=== PATIENT | male | born 1985 | race Caucasian/White ===

== ENCOUNTER 2023-03-12 17:31 | Emergency (ER) | payer OTHER, BC ==
[~2023-03-12] VITALS: Ht 182.9 cm; Wt 89.4 kg
[2023-03-12 18:13] LABS: Basophils # (auto) 0.1 10 ^3/uL (0-0.2); Eosinophils # (auto) 0 10 ^3/uL (0-0.8); Hemoglobin 17.9 g/dL (13.5-17.5); Mean Corpuscular Hemoglobin 30.3 pg (28.0-32.0); Mean Corpuscular Hgb Conc. 34.1 g/dL (32.0-36.0); Mean Corpuscular Volume 88.9 fL (80.0-100.0); Monocytes # (auto) 0.7 10 ^3/uL (0-1.3); Nucleated Red Blood Cells % 0.3 %
[2023-03-12 18:15] LABS: Basophils % (auto) 0.7 % (0.0-2.0); Eosinophils % (auto) 0.6 % (0.0-7.0); Hematocrit 52.5 % (41.0-53.0); Lymphocytes # (auto) 1.8 10 ^3/uL (0.4-5.4); Lymphocytes % (auto) 21.1 % (10.0-50.0); Monocytes % (auto) 8.5 % (0.0-12.0); Neutrophils % (auto) 69.1 % (37.0-80.0); Red Cell Distribution Width 13.3 % (11.8-14.3); White Blood Cell 8.7 10^3/uL (4.4-10.8)
[2023-03-12 18:40] LABS: Albumin 4.7 g/dL (3.4-5.0); Calcium 9.9 mg/dL (8.5-10.1); Potassium 3.9 mmol/L (3.5-5.1)
[2023-03-12 18:44] LABS: BUN/Creatinine Ratio 11.9 (10.0-20.0); Bilirubin, Total 1.1 mg/dL (0.2-1.0); Total Protein 8.7 g/dL (6.4-8.2)
[2023-03-12 21:11] LABS: Urine Bacteria NONE SEEN /hpf (None Seen); Urine Blood 1+ /uL (Negative); Urine Mucus FEW (None Seen); Urine Specific Gravity 1.036 (1.001-1.035); Urine WBC <1 /hpf (0 - 3)
[2023-03-12] MEDS ORDERED: ONDANSETRON HCL 4 MG/2 ML VIAL IV ONE (21:45)
[2023-03-12] MEDS ORDERED: SODIUM CHLORIDE 0.9% 1,000 ML IV ONE (21:45)
[2023-03-12] MEDS ORDERED: CEPH500C PO ×2 (21:58)
[2023-03-12] MEDS ORDERED: TAMS-35 PO ×2 (21:58)
[2023-03-12] MEDS ORDERED: ZOFR4T PO ×2 (21:58)
[2023-03-12] MEDS ORDERED: FAMO20TA10 PO ×2 (21:58)
[2023-03-12] MEDS ORDERED: SODIUM CHLORIDE 0.9% 2,000 ML IV ONE (22:00)
[2023-03-12] MEDS ORDERED: FAMOTIDINE (10MG/ML) 2ML VL IV ONE (22:00)
[2023-03-12] MEDS ORDERED: TAMSULOSIN HYDROCHLORIDE 0.4 MG CAP PO ONE (22:00)
[2023-03-12 22:51] LABS: Alcohol, Urine < 3.0 mg/dL (0-10); Amphetamine Screen, Urine NEGATIVE (NEGATIVE); Barbiturate Scree,Urine NEGATIVE (NEGATIVE); Benzodiazephine Screen, Urine NEGATIVE (NEGATIVE); Cannabinoid Screen, Urine POSITIVE (NEGATIVE); Cocaine Screen, Urine NEGATIVE (NEGATIVE)
[2023-03-12 22:59] LABS: Opiate Scree,Urine NEGATIVE (NEGATIVE); Phencyclidine Screen, Urine NEGATIVE (NEGATIVE)
[2023-03-13] MEDS ORDERED: ZOFR4T PO (00:10)
[2023-03-13] MEDS ORDERED: TAMS-35 PO (00:10)
[2023-03-13] MEDS ORDERED: CEPH500C PO (00:10)
[2023-03-13] MEDS ORDERED: FAMO20TA10 PO (00:10)
[2023-03-13 00:15] VITALS: BP 127/84; PULSE 83; RESP 18; O2SAT 100
== END 2023-03-13 00:16 | disposition home or self-care (01) ==
LOC: ER 17:31
DX: K29.70 Gastritis, unspecified, without bleeding (principal); N20.0 Calculus of kidney; Z79.899 Other long term (current) drug therapy
CPT/HCPCS: 36415; 74176; 80053; 80307; 81001; 83690; 85025; 96374; 96375; 99285; J2405; J3490; J7030

== ENCOUNTER → 2023-06-10 | Outpatient (CLI) | payer BC, OTHER ==
[~2023-06-10] MED LIST: CEPH500C PO; FAMO20TA10 PO; TAMS-35 PO; ZOFR4T PO
[2023-06-10 12:24] LABS: INR 0.94 (0.9-1.15); Partial Thromboplastin Time 29.9 SEC (24.5-34.5); Prothrombin Time 9.9 sec (9.3-11.8)
[2023-06-10 12:35] LABS: Basophils # (auto) 0 10 ^3/uL (0-0.2); Basophils % (auto) 0.2 % (0.0-2.0); Eosinophils # (auto) 0.2 10 ^3/uL (0-0.8); Eosinophils % (auto) 2.8 % (0.0-7.0); Hematocrit 46.2 % (41.0-53.0); Hemoglobin 15.8 g/dL (13.5-17.5); Lymphocytes # (auto) 1.8 10 ^3/uL (0.4-5.4); Lymphocytes % (auto) 24.1 % (10.0-50.0); Mean Corpuscular Hemoglobin 30.8 pg (28.0-32.0); Mean Corpuscular Hgb Conc. 34.3 g/dL (32.0-36.0); Mean Corpuscular Volume 89.8 fL (80.0-100.0); Monocytes # (auto) 0.5 10 ^3/uL (0-1.3); Monocytes % (auto) 6.7 % (0.0-12.0); Neutrophils # (auto) 4.9 10 ^3/uL (1.6-8.6); Neutrophils % (auto) 66.2 % (37.0-80.0); Nucleated Red Blood Cells % 0.1 %; Red Blood Cells 5.14 10^6/uL (4.5-5.90); Red Cell Distribution Width 13.8 % (11.8-14.3); White Blood Cell 7.4 10^3/uL (4.4-10.8)
[2023-06-10 13:18] LABS: Chloride 105 mmol/L (98-107); Potassium 4.5 mmol/L (3.5-5.1); Sodium 139 mmol/L (136-145)
[2023-06-10 13:19] LABS: Anion Gap 4 (5-15); Carbon Dioxide 30 mmol/L (20-30)
[2023-06-10 13:20] LABS: Calcium 9.2 mg/dL (8.7-10.4)
[2023-06-10 13:24] LABS: BUN/Creatinine Ratio 7.1 (10.0-20.0); Blood Urea Nitrogen 8 mg/dL (9-23); Glucose 92 mg/dL (74-106)
[2023-06-10 15:49] LABS: Urine Bacteria NONE SEEN /hpf (None Seen); Urine Blood Negative /uL (Negative); Urine Clarity Clear (Clear); Urine Color Yellow (Yellow); Urine Protein, UAD Negative (Negative); Urine Urobilinogen Normal (Negative); Urine WBC 1 /hpf (0 - 3); Urine pH 7.5 (5.0-8.0)
== END | disposition home or self-care (01) ==
LOC: LAB 11:38
PROVIDERS: ATTEND Urology
DX: M79.89 Other specified soft tissue disorders (principal); D53.8 Other specified nutritional anemias; N39.0 Urinary tract infection, site not specified
CPT/HCPCS: 36415; 80048; 81001; 85025; 85610; 85730; 87086